=== PATIENT | female | born 1990 | race African-American/Black ===

== ENCOUNTER 2022-05-31 13:15 | Inpatient (IN) | payer OTHER ==
[~2022-05-31] VITALS: Ht 165.1 cm; Wt 84.8 kg
[2022-06-02] MEDS ORDERED: PRIMACARE SOFT1 EACH PO (12:51)
[2022-06-02] MEDS ORDERED: PANTOPRAZOLE SO40 MG (13:25)
== END 2022-06-04 13:35 | disposition home or self-care (01) | DRG 807 ==
LOC: LDR 06-02 10:17 → OB/GYN 06-02 10:17
PROVIDERS: ADMIT Specialist; ATTEND Specialist
PROC: 10E0XZZ Delivery of Products of Conception, External Approach (ICD-10-PCS; principal; 2022-06-02)
PROC: 0HQ9XZZ Repair Perineum Skin, External Approach (ICD-10-PCS; 2022-06-02)
PROC: 4A1HXCZ Monitoring of Products of Conception, Cardiac Rate, External Approach (ICD-10-PCS; 2022-06-02)
DX: O70.1 Second degree perineal laceration during delivery (principal); Z37.0 Single live birth; Z3A.39 39 weeks gestation of pregnancy; Z20.822 Contact with and (suspected) exposure to COVID-19